=== PATIENT | female | born 1980 | race Caucasian/White ===

== ENCOUNTER → 2021-09-16 11:46 | Outpatient (CLI) | payer OTHER, SELFPAY ==
--- NOTE | ~2021-09-16 | XR_ITS ---
XR lumbar spine min 4V DATE: 09/16/2021 12:13 INDICATION: Lumbosacral back pain, left hip pain. TECHNIQUE: AP, lateral, bilateral oblique views, coned lateral lumbosacral view COMPARISON: None FINDINGS: There is mild lumbar levoscoliosis. No fracture or bone destruction, spondylolysis or spondylolisthesis is evident. The lumbar pedicles a re intact. There is severe loss of disc space as well as spurring at the L5-S1 interspace. Remaining lumbar inte rspaces appear well preserved. There is mild degenerative spurring at L3-4. The sacroiliac joints are intact. IMPRESSION: Severe degenerative disc disease at L5-S1 Mild degenerative disc disease at L3-4 Reviewed, dictated and finalized at location A.
--- NOTE | ~2021-09-16 | XR_ITS ---
EXAMINATION: XR hip LT min 2V DATE: 09/16/2021 12:13 INDICATION: Left hip pain. TECHNIQUE: 2 views of left hip were obtained. COMPARISON: None. FINDINGS: Bone alignment is normal. No fracture. There is mild left hip osteoarthritis. IMPRESSION: 1. Mild left hip osteoarthritis. Reviewed, dictated and finalized at location A.
== END ==
PROVIDERS: Visit Provider Chiropractor
DX: M16.12 Unilateral primary osteoarthritis, left hip (principal); M41.9 Scoliosis, unspecified; M47.817 Spondylosis without myelopathy or radiculopathy, lumbosacral region
CPT/HCPCS: 72110; 73502